=== PATIENT | female | born 1995 | race Caucasian/White ===

== ENCOUNTER 2025-07-09 21:56 | Emergency (ER) | payer OTHER, SELFPAY ==
[2025-07-09 22:03] VITALS: BP 114/76; PULSE 71; RESP 14; TEMP 36.4; O2SAT 99; BMI 28.3
[2025-07-09 22:55] VITALS: BP 129/88; PULSE 74; O2SAT 99
[2025-07-09 23:01] LABS: Hematocrit 38.4 % (36-47); Hemoglobin 13.00 g/dL (11.27-16.99); Mean Corpuscular HGB Conc 33.9 g/dL (30-55); Mean Corpuscular Hemoglobin 30.3 pg (27-33); Mean Corpuscular Volume 89.5 fl (85-98); Nucleated Red Blood Cells % 0 %; Platelet Count 238 10^3/cmm (157-399); Red Blood Count 4.29 10^6/uL (3.85-5.65); White Blood Count 6.59 10^3/uL (3.29-11.43)
--- NOTE | 2025-07-09 23:20 | ED_ITS ---
HPI - Abdominal Pain 2 General: Chief Complaint: Abdominal Pain Stated Complaint: Abd Pain Time Seen by Provider: 07/09/25 21:58 Source: patient Mode of arrival: ambulatory Limitations: no limitations History of Present Illness: Patient is a 29-year-old female with no reported past medical history who reports the emerged department complaining of diffuse abdominal cramping beginning at approximately 1900 this evening. States that she has a history of previous episodes that have spanned over the course of years, has never seen specialist for it but states she has gone to urgent care and was told that nothing was wrong with me and that I am crazy. She has no other associated symptoms, specifically no vomiting or diarrhea, urinary symptoms, chest pain or shortness of breath, previous abdominal surgical history. She does note over the weekend she was constipated as she recently got , so she took magnesium citrate to clear her out. Vitals are stable, states that she has never had colonoscopy or been diagnosed with ureteral bowel syndrome. Initially on arrival pain reported to be 8/10 but she states currently it is a 3/10, and normally it does resolve on its own. She states she just was to make sure there is nothing wrong with her. Denies possibility of , no vaginal bleeding or discharge. MD elicited complaint: abdominal pain Onset (ago): hour(s) Location: Diffuse Severity: similar to previous episodes Quality: cramping Exacerbating factors: nothing Relieving factors: nothing Associated Symptoms: Reports GI cramping; Denies bloating, change in stool character, chills, constipation, diarrhea, dysuria, fever(s), hematochezia, nausea and vomiting Related Data Allergies Allergy/AdvReac Type Severity Reaction Status Date / Time sulfamethoxazole (From Allergy Unknown Verified 07/09/25 22:05 Bactrim) trimethoprim (From Bactrim) Allergy Unknown Verified 07/09/25 22:05 Review of Systems 2 General: Reports: 10 or more systems reviewed and unremarkable except in HPI and below Const: Denies: fever(s), chills, change in appetite, change in weight or diaphoresis ENMT: Denies: throat pain or hoarseness Card: Denies: chest pain, palpitations or lightheadedness Resp: Denies: dyspnea, productive cough or wheezing GI: Reports: abdominal pain and GI cramping; Denies: nausea, vomiting, diarrhea, constipation, bloating, change in stool character or hematochezia : Denies: flank pain, difficulty voiding, dysuria, urinary frequency or urinary urgency Musc: Denies: neck pain or back pain Skin/Breast: Denies: rash or new lesions Neuro: Denies: headache(s) or dizziness Physical Exam 2 Const: COMMON NORMALS: no acute distress, average body habitus, patient oriented x3, no limitations, healthy appearing, alert and well nourished G ENERAL APPEARANCE: cooperative and comfortable ORIENTATION/CONSCIOUSNESS: Yes awake OTHER: nontoxic Neck/C-Spine: COMMON NORMALS: full ROM, supple, no meningeal signs and no JVD Resp: COMMON NORMALS: normal respiratory effort, No retractions, No use of accessory muscles and clear to auscultation bilaterally AUSCULTATION: clear to auscultation bilaterally, no crackles, no rales, no rhonchi and no wheezes Cardio: COMMON NORMALS: no JVD, regular rate, regular rhythm, No gallops present (Cardio), No clicks present (Cardio), No murmurs present (Cardio), No rub (Cardio) and Peripheral pulses 2+ throughout RATE: regular rate R HYTHM: regular rhythm PERIPHERAL PULSES: Peripheral pulses 2+ throughout GI: COMMON NORMALS: Normal to inspection, nondistended, normoactive bowel sounds present, Soft to palpation, No hepatosplenomegaly present and no masses AUSCULTATION: Yes normoactive bowel sounds PALPATION: Yes Soft to palpation, Yes Tenderness to palpation present (GI) (Diffuse), No Guarding due to palpation present (GI), No Rigid due to palpation and Yes No hepatosplenomegaly present RECTAL EXAM: deferred Extremity: COMMON NORMALS: normal to inspection and full ROM Neuro: COMMON NORMALS: patient oriented x3, moves all extremities, no focal motor deficits and no sensory deficits noted SENSORIUM/ORIENTATION: Yes alert MENINGEAL SIGNS: Yes no meningeal signs Psych: COMMON NORMALS: mental status grossly normal, cooperative and speech normal SPEECH: Yes normal speech Skin: COMMON NORMALS: no rashes or lesions noted GENERAL SKIN EXAM: no rashes or lesions noted Course 2 Vital Signs: Vital signs: Vital Signs Temperature 97.6 F 07/09/25 22:03 Pulse Rate 69 07/10/25 00:11 Respiratory Rate 14 07/09/25 22:03 Blood Pressure 120/76 07/10/25 00:11 Pulse Oximetry 99 07/10/25 00:11 MDM - Abdominal Pain Medical Decision Making Patient presenting for abdominal cramping beginning a couple of hours prehospital, history of multiple episodes in the past has had worked up with urgent care before but states that she has never been told what is wrong. Symptoms had greatly resolved spontaneously at time of examination, she had no other associated symptoms other than diffuse abdominal cramping. Vitals have been stable. Nontoxic-appearing. Her CBC, CMP, lipase, and urinalysis all negative for any explanation of her pain. I feel that imaging at this time is unnecessary, suspect that this is favorable for irritable bowel syndrome versus other benign abdominal etiology, and she will be referred to gastroenterology for further workup due to the chronicity of her symptoms. Ultimately stable for discharge home with strict return precautions given, she agrees with this plan and is comfortable. Lab Data 07/09/25 22:42 07/09/25 22:42 Labs/Radiology: Laboratory Results WBC 6.59 10^3/uL (3.29-11.43) 07/09/25 22:42 RBC 4.29 10^6/uL (3.85-5.65) 07/09/25 22:42 Hgb 13.00 g/dL (11.27-16.99) 07/09/25 22:42 Hct 38.4 % (36-47) 07/09/25 22:42 MCV 89.5 fl (85-98) 07/09/25 22:42 MCH 30.3 pg (27-33) 07/09/25 22:42 MCHC 33.9 g/dL (30-55) 07/09/25 22:42 RDW 12.4 % (12.1-15.1) 07/09/25 22:42 Plt Count 238 10^3/cmm (157-399) 07/09/25 22:42 MPV 9.6 fL (7.4-10.4) 07/09/25 22:42 Neut % (Auto) 52.1 % 07/09/25 22:42 Lymph % (Auto) 34.9 % 07/09/25 22:42 [place] % (Auto) 8.3 % 07/09/25 22:42 Eos % (Auto) 3.9 % 07/09/25 22:42 Baso % (Auto) 0.6 % 07/09/25 22:42 Neut # (Auto) 3.43 10^3/uL (1.8-7.7) 07/09/25 22:42 Lymph # (Auto) 2.3 10^3/uL (0.8-4.8) 07/09/25 22:42 [place] # (Auto) 0.6 10^3/uL (0.2-0.9) 07/09/25 22:42 Eos # (Auto) 0.3 10^3/uL (0.0-0.8) 07/09/25 22:42 Baso # (Auto) 0.0 10^3/uL (0.0-0.1) 07/09/25 22:42 Nucleated RBC % (auto) 0 % 07/09/25 22:42 Nucleated RBCs # 0.0 /100WBC 07/09/25 22:42 Sodium 141 mmol/L (136-145) 07/09/25 22:42 Potassium 3.4 mmol/L (3.5-5.1) L 07/09/25 22:42 Chloride 106 mmol/L (98-107) 07/09/25 22:42 Carbon Dioxide 22 mmol/L (22-29) 07/09/25 22:42 Anion Gap 16.4 (5-19) 07/09/25 22:42 BUN 7 mg/dL (6-20) 07/09/25 22:42 Creatinine 0.6 mg/dL (0.5-0.9) 07/09/25 22:42 GFR Calculation 119.9 mL/min (90-130) 07/09/25 22:42 Glucose 126 mg/dL (65-115) H 07/09/25 22:42 Calculated Osmolality 292 mOsm/kg (285-295) 07/09/25 22:42 Calcium 9.3 mg/dL (8.5-10.5) 07/09/25 22:42 Total Bilirubin 0.2 mg/dL (0.15-1.2) 07/09/25 22:42 AST 17 U/L (0-32) 07/09/25 22:42 ALT 14 U/L (0-33) 07/09/25 22:42 Alkaline Phosphatase 75 U/L (35-105) 07/09/25 22:42 Total Protein 6.4 g/dL (6.6-8.7) L 07/09/25 22:42 Albumin 3.6 g/dL (3.5-5.2) 07/09/25 22:42 Globulin 2.8 g/dL (1.3-4.6) 07/09/25 22:42 Lipase 26 U/L (13-60) 07/09/25 22:42 HCG, Qual Negative (Negative) 07/09/25 22:42 Urine Color Yellow (Yellow) 07/09/25 23:13 Urine Appearance Clear (CLEAR) 07/09/25 23:13 Urine pH 6.0 (5-7) 07/09/25 23:13 Ur Specific [place] 1.026 (1.005-1.030) 07/09/25 23:13 Urine Protein Negative (Negative) 07/09/25 23:13 Urine Glucose (UA) Negative (Normal) 07/09/25 23:13 Urine Ketones Trace (Negative) 07/09/25 23:13 Urine Blood Negative (Negative) 07/09/25 23:13 Urine Nitrate Negative (Negative) 07/09/25 23:13 Urine Bilirubin Negative (Negative) 07/09/25 23:13 Urine Urobilinogen 1.0 mg/dL (Negative) 07/09/25 23:13 Ur Leukocyte Esterase Negative (Negative) 07/09/25 23:13 Amorphous Sediment Not Reportable 07/09/25 23:13 No radiology studies performed this visit Discharge Plan Discharge Patient Disposition: Home Clinical Impression: Irritable bowel syndrome Qualifiers: Irritable bowel syndrome type: unspecified Qualified Code(s): K58.9 - Irritable bowel syndrome, unspecified Condition: Stable Discharge Orders: Discharge ED (Routine); Ordered 07/10/25 Ordered By: Clemente Lawton Patient Instructions: Patient Portal & Winsome Instructions Activity Restrictions/Additional Instructions: IBS Discharge Instructions You have been diagnosed with Irritable Bowel Syndrome (IBS). IBS is a common condition that affects the digestive system and can cause symptoms like stomach pain, bloating, diarrhea, or constipation. Your lab tests in the emergency department did not show any serious problems, and you will be referred to a clinical sciences professor for further evaluation and management. What to Expect: - IBS is a long-term condition, but it does not cause damage to your intestines or increase your risk for serious diseases. - Symptoms can come and go. Many people find that their symptoms improve with changes in diet and lifestyle. Diet and Eating Habits: - Eat regular meals and take time to eat slowly. - Avoid skipping meals or leaving long gaps between eating. - Drink at least 8 cups of fluid per day, mostly water or non-caffeinated drinks like herbal tea. - Limit tea and coffee to 3 cups per day. - Reduce alcohol and fizzy (carbonated) drinks. - If you eat a lot of high-fiber foods (like bran cereals or whole grain breads), you may want to cut back, as these can sometimes make symptoms worse. If you add fiber, choose soluble fiber like oats or psyllium (ispaghula husk). - Limit fresh fruit to 3 portions per day (about 80 grams per portion). - If you have diarrhea, avoid foods and drinks with sorbitol (an artificial sweetener found in sugar-free gum and some diet products). - Some people find that a diet low in certain carbohydrates called FODMAPs (found in some fruits, vegetables, dairy, and sweeteners) helps with symptoms. This diet should be tried with the help of a dietitian. Lifestyle Tips: - Try to get regular exercise, such as walking, swimming, or cycling. - Make time for relaxation and stress reduction. Techniques like deep breathing or yoga may help. - Keep a diary of your symptoms and foods you eat. This can help you and your doctor find patterns and triggers. Medications: - Iqbr-hsz-qcqyhin medicines may help with symptoms. For diarrhea, loperamide can be used as needed. For constipation, products like polyethylene glycol may help. Only use these as directed by your doctor. - Some people benefit from probiotics, but the evidence is mixed. If you try a probiotic, use it for at least 4 weeks and monitor your symptoms. When to Seek Medical Attention: Return to the emergency department or contact your doctor if you experience: - New or severe abdominal pain - Blood in your stool - Unintentional weight loss - Fever - Vomiting that does not stop - Signs of dehydration (such as dizziness, dry mouth, or not urinating) Next Steps: - You will be referred to a clinical sciences professor for further evaluation and management. - Bring your symptom and food diary to your appointment. - Follow up with your primary care provider as needed. Remember: IBS is a manageable condition. With the right support and changes, most people find ways to control their symptoms and improve their quality of life. If you have any questions or concerns before your gastroenterology appointment, contact your healthcare provider. Print Language: Turkish Coding Level of Care Code ED [employer] Worker for Ava Arizmendi
[2025-07-09 23:23] LABS: HCG, Serum Qual Negative (Negative)
[2025-07-09 23:25] LABS: Add Urine Microscopic? NO
[2025-07-09 23:26] LABS: Alanine Aminotransferase 14 U/L (0-33); Albumin Level 3.6 g/dL (3.5-5.2); Alkaline Phosphatase 75 U/L (35-105); Anion Gap 16.4 (5-19); Aspartate Amino Transferase 17 U/L (0-32); Blood Urea Nitrogen 7 mg/dL (6-20); Calcium 9.3 mg/dL (8.5-10.5); Carbon Dioxide 22 mmol/L (22-29); Chloride 106 mmol/L (98-107); Creatinine Clr Calc Pharmacy 134.4478; Globulin 2.8 g/dL (1.3-4.6); Glucose 126 mg/dL (65-115); Lipase 26 U/L (13-60); Osmolality Calculated 292 mOsm/kg (285-295); Potassium 3.4 mmol/L (3.5-5.1); Sodium 141 mmol/L (136-145); Total Protein 6.4 g/dL (6.6-8.7)
[2025-07-09 23:27] LABS: Glucose Urine UA Negative (Normal); Nitrate Urine Negative (Negative); Specific Gravity, Urine 1.026 (1.005-1.030)
[2025-07-09 23:30] LABS: Charge for UA Resulting for Rev
[2025-07-10 00:11] VITALS: BP 120/76; PULSE 69; O2SAT 99
== END 2025-07-10 00:13 | disposition home or self-care (01) ==
PROVIDERS: Emergency Provider Physician Assistant
DX: K58.9 Irritable bowel syndrome, unspecified (principal)
CPT/HCPCS: 80053; 81003; 83690; 84703; 85025; 99283